=== PATIENT | male | born 1945 | race Two or more races ===

== ENCOUNTER 2017-02-14 14:01 | Emergency (ER) | payer MEDICARE, OTHER ==
[~2017-02-14] VITALS: Ht 172.7 cm; Wt 68.0 kg
--- NOTE | 2017-02-14 14:10 | NUR ---
PT [facility]ENIA FROM SNF FOR HEMATURIA S/P PULLED OUT [facility]. AT FOR EVAL. SAFETY AND COMFORT MEASURES PROVIDED. WILL MONITOR.
--- NOTE | 2017-02-14 14:37 | NUR ---
CALLED [facility] AND SPOKE WITH MELISSA TO REQUEST THAT MED LIST BE FAXED OVER FOR ER DOCTOR
--- NOTE | 2017-02-14 14:50 | NUR ---
FC INITIATED, NOTED WITH BLOOD TINGED URINE OUTPUT. NOTED SWOLLEN TESTICLES. FC IRRIGATED. NO BLOOD CLOT NOTED. FC LEFT IN PLACED PER MD.
--- NOTE | 2017-02-14 14:57 | NUR ---
PAGED DR.RICHARD REID (UROLOGIST) AT [phone]
[2017-02-14 15:15] LABS: BASOPHILS # (AUTO) 0.1 /CMM (0.0-0.2); BASOPHILS % (AUTO) 0.8 % (0.0-2.0); EOSINOPHILS # (AUTO) 0.1 /CMM (0.0-0.7); HEMATOCRIT 31 % (39-51); HEMOGLOBIN 10.2 g/dL (13.5-17.5); LYMPHOCYTES # (AUTO) 1.3 /CMM (0.8-4.8); LYMPHOCYTES % (AUTO) 16.6 % (20.0-44.0); MEAN CORPUSCULAR HEMOGLOBIN 30 PG (26.0-33.0); MEAN CORPUSCULAR HGB CONC 33 g/dl (31.0-36.0); MEAN CORPUSCULAR VOLUME 92 fL (80-96); MONOCYTES # (AUTO) 0.3 /CMM (0.1-1.30); MONOCYTES % (AUTO) 3.7 % (2.0-12.0); NEUTROPHILS # (AUTO) 5.9 /CMM (1.8-8.9); NEUTROPHILS % (AUTO) 77.9 % (43.0-81.0); PLATELET COUNT (AUTO) 233 /CMM (150-450); RDW COEFFICIENT OF VARIATION 15.9 (11.5-15.0); RED BLOOD CELL COUNT(AUTO) 3.39 MIL/uL (4.5-6.0); WHITE BLOOD COUNT (AUTO) 7.7 K/uL (4.3-11.0)
[2017-02-14 15:26] LABS: CALCIUM, SERUM 8.3 mg/dL (8.5-10.1); POTASSIUM 4.8 mmol/L (3.5-5.1)
--- NOTE | 2017-02-14 15:28 | NUR ---
REPAGED DR.RICHARD REID
[2017-02-14 15:30] LABS: INR 1.32 (0.87-1.13); PROTHROMBIN TIME 13.9 SECS (9.5-12.7)
--- NOTE | 2017-02-14 16:15 | NUR ---
DR. MENJIVAR AT AND EVALUATED PT FOR PARAPHIMOSIS. DC ON HOLD.
--- NOTE | 2017-02-14 16:18 | NUR ---
CALLED [facility] FOR TRANSPORT BACK TO SNF, ETA 45 MIN
--- NOTE | 2017-02-14 16:22 | NUR ---
CALLED BACK [facility] TO PUT CALL ON [facility]ISAL
[2017-02-14] MEDS ORDERED: MORPHINE SULFATE INJ 4 MG/ML DISP.SYRIN ONE (16:41)
[2017-02-14] MEDS ORDERED: ONDANSETRON HCL/PF 4 MG/2 ML VIAL ONE (16:41)
[2017-02-14] MEDS ORDERED: MORPHINE SULFATE INJ 2 MG/ML DISP.SYRIN IV ONE (17:00)
[2017-02-14] MEDS ORDERED: ONDANSETRON HCL/PF - ER 4 MG/2 ML VIAL IV ONE (17:00)
--- NOTE | 2017-02-14 17:59 | NUR ---
PAGED UROLOGIST INFLATED BALL MOLDER AT [place], DR. GLADYS SANTIAGO
--- NOTE | 2017-02-14 18:04 | NUR ---
KVNG SANCHEZ AT [facility] PAGED, AUTOMATIC DRILLER AND REAMER
--- NOTE | 2017-02-14 18:07 | NUR ---
CALLED BACK [facility] FOR TRANSPORT, ETA 30 MIN
--- NOTE | 2017-02-14 18:32 | NUR ---
REPORT GIVEN TO [facility] FOR TRANSPORT BACK TO [facility].
[2017-02-14 18:39] VITALS: BP 107/68
== END 2017-02-14 18:40 ==
LOC: ER 14:04
DX: S37.20XA Unspecified injury of bladder, initial encounter (principal); S37.30XA Unspecified injury of urethra, initial encounter; R31.0 Gross hematuria; E87.0 Hyperosmolality and hypernatremia; I10 Essential (primary) hypertension; E11.9 Type 2 diabetes mellitus without complications; I48.91 Unspecified atrial fibrillation; Z87.01 Personal history of pneumonia (recurrent); N47.2 Paraphimosis; X58.XXXA Exposure to other specified factors, initial encounter; Y93.9 Activity, unspecified; Y92.89 Other specified places as the place of occurrence of the external cause; Y99.8 Other external cause status
CPT/HCPCS: 36415; 54450; 80048; 85025; 85730; 96374; 96375; 99284; A4217; A4606; J2270; J2405; Z7610

== ENCOUNTER 2017-03-30 06:34 | Inpatient (IN) | payer MEDICARE, OTHER ==
[~2017-03-30] VITALS: Ht 175.3 cm; Wt 83.9 kg
[2017-03-30] VITALS (41 sets, daily range): BP systolic 81–116; BP diastolic 43–66
[2017-03-30] MEDS ORDERED: MIDAZOLAM HCL 2 MG/2ML VIAL ONE (06:37)
[2017-03-30] MEDS ORDERED: ACETAMINOPHEN 650 MG/SUPP.RECT RC ONE ×2 (06:49→07:00)
[2017-03-30] MEDS ORDERED: PROPOFOL 100 ML IV ONE (06:49)
[2017-03-30] MEDS ORDERED: IV NS 0.9% 2,000 ML ONE (06:50)
[2017-03-30] MEDS ORDERED: PIPERACILLIN /TAZOBACTAM 3.375 G VIAL IV ONE (06:50)
[2017-03-30] MEDS ORDERED: IV NS 0.9% 500 ML IV ONE (06:50)
[2017-03-30] MEDS ORDERED: SECONDARY IV SET 1 EA INFUS.SET MC ONE ×2 (06:50→12:58)
[2017-03-30] MEDS ORDERED: IV SET PRIMARY 1 EA INFUS.SET MC ONE (06:50)
[2017-03-30] MEDS ORDERED: IV SET PRIMARY PUMP SET 1 EA INFUS.SET MC ONE ×4 (06:51→19:38)
[2017-03-30] MEDS ORDERED: VANCOMYCIN 1 GM VIAL ONE (06:51)
[2017-03-30] MEDS ORDERED: MIDAZOLAM HCL 5 MG/5ML VIAL IV ONE (07:00)
[2017-03-30] MEDS ORDERED: IV NS 0.9% 1,000 ML BAG IV ONE (07:00)
[2017-03-30] MEDS ORDERED: VANCOMYCIN 1 GM in IV D5W 250 ML IV ONE ×2 (07:00→10:30)
[2017-03-30] MEDS ORDERED: PIPERACILLIN /TAZOBACTAM 3.375 G in IV D5W 50 ML IV ONE (07:00)
[2017-03-30] MEDS ORDERED: SUCCINYLCHOLINE CHLORIDE 20 MG/ML VIAL IV ONE (07:00)
[2017-03-30] MEDS ORDERED: PROPOFOL 100 ML IV PRN (07:00)
[2017-03-30 07:03] LABS: BASOPHILS % (AUTO) 0.2 % (0.0-2.0); HEMATOCRIT 33 % (39-51); HEMOGLOBIN 10.7 g/dL (13.5-17.5); LYMPHOCYTES # (AUTO) 0.5 /CMM (0.8-4.8); LYMPHOCYTES % (AUTO) 4.9 % (20.0-44.0); MEAN CORPUSCULAR HEMOGLOBIN 30 PG (26.0-33.0); MEAN CORPUSCULAR HGB CONC 32 g/dl (31.0-36.0); MEAN CORPUSCULAR VOLUME 94 fL (80-96); MONOCYTES # (AUTO) 0.6 /CMM (0.1-1.30); MONOCYTES % (AUTO) 5.1 % (2.0-12.0); NEUTROPHILS # (AUTO) 9.9 /CMM (1.8-8.9); NEUTROPHILS % (AUTO) 89.8 % (43.0-81.0); PLATELET COUNT (AUTO) 192 /CMM (150-450); RDW COEFFICIENT OF VARIATION 16.7 (11.5-15.0); RED BLOOD CELL COUNT(AUTO) 3.57 MIL/uL (4.5-6.0)
[2017-03-30 07:18] LABS: APPEARANCE,URINE CLOUDY (CLEAR); BILIRUBIN,URINE NEGATIVE (NEGATIVE); BLOOD, URINE 1+ Ery/uL (NEGATIVE); COLOR,URINE YELLOW (YELLOW); KETONES,URINE NEGATIVE (NEGATIVE); LEUKOCYTE ESTERASE ,URINE 3+ (NEGATIVE); NITRITE, URINE NEGATIVE (NEGATIVE); PROTEIN,URINE 3+ mg/dl (NEGATIVE); UGLUCOSE 2+ mg/dL (NEGATIVE)
[2017-03-30 07:20] LABS: INR 1.11 (0.87-1.13)
[2017-03-30 07:21] LABS: TROPONIN I 0.214 ng/mL (0.00-0.056)
[2017-03-30 07:23] LABS: CLINITEST,URINE 3/4%
[2017-03-30 07:25] LABS: WBC,URINE 51-80 /HPF (0-3)
[2017-03-30 07:26] LABS: BACTERIA,URINE Moderate /HPF (None Seen); RBC,URINE 21-50 /HPF (0-2); SQUAMOUS EPITHELIAL CELL,UR Few /HPF (None Seen); TRIPLE PHOSPHATE CRYSTAL,UR Moderate /HPF (None Seen)
[2017-03-30 07:28] LABS: ALANINE AMINOTRANSFERASE 62 U/L (12-78); ALBUMIN 2.1 g/dL (3.4-5.0); ALKALINE PHOSPHATASE 120 U/L (46-116); ASPARTATE AMINOTRANSFERASE 36 U/L (15-37); BILIRUBIN,DIRECT 0.4 mg/dL (0.0-0.2); BILIRUBIN,TOTAL 0.7 mg/dL (0.2-1.0); CALCIUM, SERUM 8.4 mg/dL (8.5-10.1); CARBON DIOXIDE 33 mmol/L (21-32); CHLORIDE 109 mmol/L (98-107); CREATININE 1.3 mg/dL (0.6-1.3); POTASSIUM 4.1 mmol/L (3.5-5.1); SODIUM SERUM 149 mmol/L (136-145); TOTAL PROTEIN, SERUM 8.2 g/dL (6.4-8.2); UREA NITROGEN, BLOOD 50 mg/dL (7-18)
[2017-03-30 07:34] LABS: GLUCOSE 464 mg/dL (74-106)
[2017-03-30] MEDS ORDERED: MIRT15TA GT (07:37)
[2017-03-30] MEDS ORDERED: TERA1CAP11 GT (07:37)
[2017-03-30] MEDS ORDERED: PANT40TA4 GT (07:37)
[2017-03-30] MEDS ORDERED: LACT-96 GT (07:37)
[2017-03-30] MEDS ORDERED: ASCO500S2 GT (07:37)
[2017-03-30] MEDS ORDERED: SENN-18 GT (07:37)
[2017-03-30] MEDS ORDERED: ACET650S26 GT (07:37)
[2017-03-30] MEDS ORDERED: LEVE100S GT (07:37)
[2017-03-30] MEDS ORDERED: POLY15DR40 EACHEYE (07:37)
[2017-03-30] MEDS ORDERED: TAMS0.4C34 GT (07:37)
[2017-03-30] MEDS ORDERED: METO25TA6 GT (07:37)
[2017-03-30] MEDS ORDERED: MAGN400O6 GT (07:37)
[2017-03-30] MEDS ORDERED: DIGO125T GT (07:37)
[2017-03-30] MEDS ORDERED: POLY17PO4 GT (07:37)
[2017-03-30] MEDS ORDERED: AMIN30LI4 GT (07:37)
[2017-03-30] MEDS ORDERED: ZINC220C8 GT (07:37)
[2017-03-30] MEDS ORDERED: RIVA10TA GT (07:37)
[2017-03-30] MEDS ORDERED: MAGN400T26 GT (07:37)
[2017-03-30] MEDS ORDERED: INSULIN REGULAR, HUMAN 100 UNIT/ML 10 ML VIAL ONE (07:47)
[2017-03-30] MEDS ORDERED: INSULIN REGULAR, HUMAN 100 UNIT/ML 10 ML VIAL IV ONE (08:00)
[2017-03-30 08:48] LABS: ABG BASE EXCESS 0.9 mmol/L; ABG OXYGEN SATURATION 98.1 % (92.0-98.5); ABG PCO2 46.9 mmHg (35.0-45.0); ABG PO2 133.2 mmHg (75.0-100.0); AaDO2 532.9 mmHg; COHb 0.7 % (0.5-1.5); MetHb 0.4 % (0.0-1.5); PEEP,BG 5 cm H2O; SITE, ABG Right Radial; VT, ABG 500 mL
[2017-03-30] MEDS ORDERED: PIPERACILLIN /TAZOBACTAM 3.375 G in IV D5W 50 ML IV SCH (10:00)
[2017-03-30] MEDS ORDERED: ACETAMINOPHEN 650 MG/20.3 ML UDC GT PRN (10:30)
[2017-03-30] MEDS ORDERED: ONDANSETRON HCL/PF 4 MG/2 ML VIAL IVP PRN (10:30)
[2017-03-30] MEDS ORDERED: FIBERSOURCE HN 1,000 ML BOTTLE GT PRN (10:30)
[2017-03-30] MEDS ORDERED: FEE PK DOSING 1 MIN EA MC ONE (11:20)
[2017-03-30] MEDS ORDERED: PANTOPRAZOLE 40 MG TABLET.DR PO SCH (12:00)
[2017-03-30] MEDS ORDERED: DIGOXIN 0.125 MG TABLET GT SCH (13:00)
[2017-03-30] MEDS: PIPERACILLIN /TAZOBACTAM 3.375 G in IV D5W 50 ML IV SCH ×2 (13:04→17:53)
[2017-03-30] MEDS: PANTOPRAZOLE 40 MG VIAL IV SCH (13:04)
[2017-03-30] MEDS: IV NS 0.9% 1,000 ML IV PRN (13:04)
[2017-03-30] MEDS: PROPOFOL 100 ML IV PRN ×2 (13:05→17:52)
[2017-03-30] MEDS ORDERED: TERAZOSIN HCL 1 MG CAPSULE GT SCH (17:00)
[2017-03-30] MEDS ORDERED: RIVAROXABAN 10 MG TABLET GT SCH (17:00)
[2017-03-30] MEDS: LEVETIRACETAM SOL (5 ML) 100 MG/ML UDC GT SCH (17:52)
[2017-03-30] MEDS: LACTOBACILLUS RHAMNOSUS GG 1 EACH CAP.SPRINK GT SCH (17:52)
[2017-03-30] MEDS: POLYVINYL ALCOHOL 15 ML BOTTLE OP SCH (17:53)
[2017-03-30] MEDS ORDERED: NOREPINEPHRINE 16 MG in IV D5W 500 ML IV PRN (18:00)
[2017-03-30] MEDS: VANCOMYCIN 0.75 GM in IV D5W 250 ML IV SCH (20:10)
[2017-03-30] MEDS: IPRATROPIUM NEB FS 0.5 MG/2.5 ML AMPUL.NEB NEB SCH ×2 (20:12→23:16)
[2017-03-31] VITALS (62 sets, daily range): BP systolic 77–125; BP diastolic 43–68
[2017-03-31] MEDS: PIPERACILLIN /TAZOBACTAM 3.375 G in IV D5W 50 ML IV SCH ×5 (00:12→23:28)
[2017-03-31] MEDS: IV NS 0.9% 1,000 ML IV PRN (03:08)
[2017-03-31] MEDS: IPRATROPIUM NEB FS 0.5 MG/2.5 ML AMPUL.NEB NEB SCH ×6 (04:00→23:09)
[2017-03-31 04:54] LABS: BASOPHILS % (AUTO) 0.1 % (0.0-2.0); EOSINOPHILS % (AUTO) 0.2 % (0.0-6.0); HEMATOCRIT 29 % (39-51); HEMOGLOBIN 9.3 g/dL (13.5-17.5); LYMPHOCYTES # (AUTO) 0.8 /CMM (0.8-4.8); LYMPHOCYTES % (AUTO) 7.7 % (20.0-44.0); MEAN CORPUSCULAR HEMOGLOBIN 30 PG (26.0-33.0); MEAN CORPUSCULAR HGB CONC 32 g/dl (31.0-36.0); MEAN CORPUSCULAR VOLUME 94 fL (80-96); MONOCYTES # (AUTO) 0.4 /CMM (0.1-1.30); NEUTROPHILS # (AUTO) 9.2 /CMM (1.8-8.9); PLATELET COUNT (AUTO) 131 /CMM (150-450); RDW COEFFICIENT OF VARIATION 16.4 (11.5-15.0); RED BLOOD CELL COUNT(AUTO) 3.07 MIL/uL (4.5-6.0); WHITE BLOOD COUNT (AUTO) 10.5 K/uL (4.3-11.0)
[2017-03-31 05:24] LABS: ALANINE AMINOTRANSFERASE 43 U/L (12-78); ALBUMIN 1.7 g/dL (3.4-5.0); ALKALINE PHOSPHATASE 97 U/L (46-116); ASPARTATE AMINOTRANSFERASE 23 U/L (15-37); BILIRUBIN,TOTAL 0.8 mg/dL (0.2-1.0); CALCIUM, SERUM 7.8 mg/dL (8.5-10.1); CARBON DIOXIDE 32 mmol/L (21-32); CHLORIDE 113 mmol/L (98-107); CREATININE 1.3 mg/dL (0.6-1.3); POTASSIUM 3.8 mmol/L (3.5-5.1); SODIUM SERUM 151 mmol/L (136-145); TOTAL PROTEIN, SERUM 6.8 g/dL (6.4-8.2); UREA NITROGEN, BLOOD 56 mg/dL (7-18)
[2017-03-31 05:26] LABS: TROPONIN I 0.165 ng/mL (0.00-0.056)
[2017-03-31 05:39] LABS: GLUCOSE 379 mg/dL (74-106)
[2017-03-31 05:57] LABS: LYMPHOCYTES % (MANUAL) 8 % (16-48); MONOCYTES % (MANUAL) 4 % (0-11.0); NEUTROPHILS % (MANUAL) 88 (42-76)
[2017-03-31] MEDS ORDERED: DEXTROSE 50%-WATER 50 ML DISP.SYRIN IV PRN ×2 (07:00→13:30)
[2017-03-31 08:03] LABS: THYROID STIMULATING HORMONE 2.136 uIU/mL (0.358-3.74)
[2017-03-31] MEDS: INSULIN REGULAR, HUMAN 100 UNIT/ML 3 ML VIAL SQ PRN ×4 (08:07→23:26)
[2017-03-31] MEDS ORDERED: SECONDARY IV SET 1 EA INFUS.SET MC ONE (08:10)
[2017-03-31] MEDS: LACTOBACILLUS RHAMNOSUS GG 1 EACH CAP.SPRINK GT SCH ×2 (08:17→17:13)
[2017-03-31] MEDS: ASCORBIC ACID 500 MG TABLET GT SCH (08:17)
[2017-03-31] MEDS: POLYVINYL ALCOHOL 15 ML BOTTLE OP SCH ×2 (08:17→17:17)
[2017-03-31] MEDS: TAMSULOSIN 0.4 MG CAP.SR.24H GT SCH (08:17)
[2017-03-31] MEDS: LEVETIRACETAM SOL (5 ML) 100 MG/ML UDC GT SCH ×2 (08:17→17:13)
[2017-03-31] MEDS: IV 1/2NS 1000 ML 1,000 ML IV PRN ×2 (08:31→19:53)
[2017-03-31] MEDS: VANCOMYCIN 0.75 GM in IV D5W 250 ML IV SCH ×2 (08:39→20:53)
[2017-03-31 08:43] LABS: ABG BASE EXCESS 2.8 mmol/L; ABG OXYGEN SATURATION 98.2 % (92.0-98.5); ABG PCO2 40.1 mmHg (35.0-45.0); ABG PH 7.446 (7.350-7.450); AaDO2 103.1 mmHg; COHb 0.3 % (0.5-1.5); O2Hb 96.9 % (94.0-97.0); SITE, ABG Right Radial; VENT MODE, BG AC 16 500 40% +5
[2017-03-31] MEDS ORDERED: HYDROGEL DRESSING 90 GM TUBE TP PRN (09:00)
[2017-03-31] MEDS ORDERED: Z GUARD REMEDY 2 OZ OINT TP PRN (09:00)
[2017-03-31 09:28] LABS: PHOSPHORUS 3.1 mg/dL (2.5-4.9)
[2017-03-31] MEDS: Z GUARD REMEDY 2 OZ OINT TP SCH (10:20)
[2017-03-31] MEDS: HYDROGEL DRESSING 90 GM TUBE TP SCH (10:20)
[2017-03-31] MEDS: PANTOPRAZOLE 40 MG VIAL IV SCH (11:39)
[2017-03-31] MEDS ORDERED: BLOOD SUGAR DIAGNOSTIC 1 EACH STRIP IN SCH (12:00)
[2017-03-31] MEDS: MORPHINE SULFATE INJ 2 MG/ML DISP.SYRIN IV PRN (15:35)
[2017-03-31] MEDS: FERROUS SULFATE (325 MG) 325 MG/TAB TABLET PO SCH (17:13)
[2017-03-31] MEDS: BLOOD SUGAR DIAGNOSTIC 1 EACH STRIP IN SCH ×2 (17:14→23:28)
[2017-03-31] MEDS: ENOXAPARIN SODIUM 80 MG/0.8 ML DISP.SYRIN SQ SCH (17:56)
[2017-03-31] MEDS: GLYTROL 1,000 ML BAG GT PRN (22:44)
[2017-04-01] VITALS (56 sets, daily range): BP systolic 85–111; BP diastolic 39–62
[2017-04-01] MEDS: IPRATROPIUM NEB FS 0.5 MG/2.5 ML AMPUL.NEB NEB SCH ×6 (03:33→23:49)
[2017-04-01] MEDS: PIPERACILLIN /TAZOBACTAM 3.375 G in IV D5W 50 ML IV SCH ×2 (05:48→12:44)
[2017-04-01] MEDS: INSULIN REGULAR, HUMAN 100 UNIT/ML 3 ML VIAL SQ PRN ×4 (06:08→23:27)
[2017-04-01] MEDS: BLOOD SUGAR DIAGNOSTIC 1 EACH STRIP IN SCH ×4 (06:11→23:27)
[2017-04-01] MEDS: IV 1/2NS 1000 ML 1,000 ML IV PRN ×2 (06:17→16:45)
[2017-04-01 06:31] LABS: BASOPHILS % (AUTO) 0.1 % (0.0-2.0); HEMATOCRIT 28 % (39-51); HEMOGLOBIN 8.9 g/dL (13.5-17.5); LYMPHOCYTES # (AUTO) 0.9 /CMM (0.8-4.8); LYMPHOCYTES % (AUTO) 8.5 % (20.0-44.0); MEAN CORPUSCULAR HEMOGLOBIN 30 PG (26.0-33.0); MEAN CORPUSCULAR HGB CONC 32 g/dl (31.0-36.0); MEAN CORPUSCULAR VOLUME 92 fL (80-96); MONOCYTES # (AUTO) 0.3 /CMM (0.1-1.30); NEUTROPHILS # (AUTO) 9.1 /CMM (1.8-8.9); NEUTROPHILS % (AUTO) 88.4 % (43.0-81.0); PLATELET COUNT (AUTO) 143 /CMM (150-450); RDW COEFFICIENT OF VARIATION 16.5 (11.5-15.0); WHITE BLOOD COUNT (AUTO) 10.3 K/uL (4.3-11.0)
[2017-04-01 06:50] LABS: ALANINE AMINOTRANSFERASE 58 U/L (12-78); ALKALINE PHOSPHATASE 96 U/L (46-116); ASPARTATE AMINOTRANSFERASE 51 U/L (15-37); CALCIUM, SERUM 7.7 mg/dL (8.5-10.1); CARBON DIOXIDE 32 mmol/L (21-32); CHLORIDE 113 mmol/L (98-107); CREATININE 1.1 mg/dL (0.6-1.3); GLUCOSE 161 mg/dL (74-106); MAGNESIUM 2.1 mg/dL (1.8-2.4); PHOSPHORUS 3.2 mg/dL (2.5-4.9); POTASSIUM 3.4 mmol/L (3.5-5.1); SODIUM SERUM 149 mmol/L (136-145); TOTAL PROTEIN, SERUM 6.2 g/dL (6.4-8.2); UREA NITROGEN, BLOOD 52 mg/dL (7-18)
[2017-04-01 07:02] LABS: TROPONIN I 0.036 ng/mL (0.00-0.056)
[2017-04-01 07:27] LABS: ALBUMIN 1.4 g/dL (3.4-5.0)
[2017-04-01] MEDS: LACTOBACILLUS RHAMNOSUS GG 1 EACH CAP.SPRINK GT SCH ×2 (08:22→16:45)
[2017-04-01] MEDS: LEVETIRACETAM SOL (5 ML) 100 MG/ML UDC GT SCH ×2 (08:22→16:45)
[2017-04-01] MEDS: FERROUS SULFATE (325 MG) 325 MG/TAB TABLET PO SCH ×2 (08:22→16:45)
[2017-04-01] MEDS: TAMSULOSIN 0.4 MG CAP.SR.24H GT SCH (08:22)
[2017-04-01] MEDS: ASCORBIC ACID 500 MG TABLET GT SCH (08:22)
[2017-04-01] MEDS: ENOXAPARIN SODIUM 80 MG/0.8 ML DISP.SYRIN SQ SCH ×2 (08:23→20:19)
[2017-04-01] MEDS: HYDROGEL DRESSING 90 GM TUBE TP SCH (08:23)
[2017-04-01] MEDS: POLYVINYL ALCOHOL 15 ML BOTTLE OP SCH ×2 (08:24→16:46)
[2017-04-01] MEDS: Z GUARD REMEDY 2 OZ OINT TP SCH (08:24)
[2017-04-01] MEDS: VANCOMYCIN 0.75 GM in IV D5W 250 ML IV SCH (08:24)
[2017-04-01] MEDS ORDERED: IV SET PRIMARY PUMP SET 1 EA INFUS.SET MC ONE ×2 (08:48→10:10)
[2017-04-01] MEDS: ALBUMIN 25% 25 GM in PREMIX 1 EA IV SCH ×3 (08:55→19:36)
[2017-04-01] MEDS: POTASSIUM CL. PREMIX PERIPHER. 50 ML IV SCH ×2 (10:15→11:04)
[2017-04-01 11:50] LABS: ABG BASE EXCESS 2.8 mmol/L; ABG OXYGEN SATURATION 98.8 % (92.0-98.5); ABG PCO2 38.2 mmHg (35.0-45.0); ABG PH 7.462 (7.350-7.450); ABG PO2 173.3 mmHg (75.0-100.0); COHb 0.8 % (0.5-1.5); MetHb 0.8 % (0.0-1.5); O2Hb 97.2 % (94.0-97.0); PEEP,BG 5 cm H2O; SITE, ABG Left Radial
[2017-04-01] MEDS: PANTOPRAZOLE 40 MG VIAL IV SCH (11:55)
[2017-04-01] MEDS: CEFAZOLIN 1 GM in IV D5W 50 ML IV SCH ×2 (15:55→20:18)
[2017-04-01] MEDS: MORPHINE SULFATE INJ 2 MG/ML DISP.SYRIN IV PRN (17:44)
[2017-04-01] MEDS: GLYTROL 1,000 ML BAG GT PRN (23:26)
[2017-04-02] VITALS (48 sets, daily range): BP systolic 82–133; BP diastolic 40–60
[2017-04-02] MEDS: IV 1/2NS 1000 ML 1,000 ML IV PRN ×3 (01:12→17:38)
[2017-04-02] MEDS: ALBUMIN 25% 25 GM in PREMIX 1 EA IV SCH (02:05)
[2017-04-02] MEDS: MORPHINE SULFATE INJ 2 MG/ML DISP.SYRIN IV PRN (02:21)
[2017-04-02] MEDS: IPRATROPIUM NEB FS 0.5 MG/2.5 ML AMPUL.NEB NEB SCH ×6 (03:40→22:56)
[2017-04-02] MEDS: CEFAZOLIN 1 GM in IV D5W 50 ML IV SCH ×3 (04:29→20:17)
[2017-04-02] MEDS: INSULIN REGULAR, HUMAN 100 UNIT/ML 3 ML VIAL SQ PRN ×4 (05:23→23:37)
[2017-04-02] MEDS: BLOOD SUGAR DIAGNOSTIC 1 EACH STRIP IN SCH ×4 (05:23→23:34)
[2017-04-02 06:21] LABS: BASOPHILS % (AUTO) 0.3 % (0.0-2.0); EOSINOPHILS # (AUTO) 0.2 /CMM (0.0-0.7); EOSINOPHILS % (AUTO) 2.1 % (0.0-6.0); HEMATOCRIT 26 % (39-51); HEMOGLOBIN 8.6 g/dL (13.5-17.5); LYMPHOCYTES % (AUTO) 12.4 % (20.0-44.0); MEAN CORPUSCULAR HEMOGLOBIN 30 PG (26.0-33.0); MEAN CORPUSCULAR HGB CONC 33 g/dl (31.0-36.0); MEAN CORPUSCULAR VOLUME 92 fL (80-96); MONOCYTES % (AUTO) 0.6 % (2.0-12.0); NEUTROPHILS # (AUTO) 6.8 /CMM (1.8-8.9); NEUTROPHILS % (AUTO) 84.6 % (43.0-81.0); PLATELET COUNT (AUTO) 132 /CMM (150-450); RDW COEFFICIENT OF VARIATION 16.2 (11.5-15.0); RED BLOOD CELL COUNT(AUTO) 2.88 MIL/uL (4.5-6.0)
[2017-04-02 06:47] LABS: ALANINE AMINOTRANSFERASE 36 U/L (12-78); ALBUMIN 2.5 g/dL (3.4-5.0); ALKALINE PHOSPHATASE 72 U/L (46-116); ASPARTATE AMINOTRANSFERASE 24 U/L (15-37); BILIRUBIN,TOTAL 0.6 mg/dL (0.2-1.0); CALCIUM, SERUM 8.1 mg/dL (8.5-10.1); CARBON DIOXIDE 29 mmol/L (21-32); CHLORIDE 110 mmol/L (98-107); CREATININE 1.2 mg/dL (0.6-1.3); GLUCOSE 152 mg/dL (74-106); POTASSIUM 3.4 mmol/L (3.5-5.1); SODIUM SERUM 145 mmol/L (136-145); TOTAL PROTEIN, SERUM 6.2 g/dL (6.4-8.2); UREA NITROGEN, BLOOD 52 mg/dL (7-18)
[2017-04-02] MEDS: FERROUS SULFATE (325 MG) 325 MG/TAB TABLET PO SCH ×2 (08:17→17:49)
[2017-04-02] MEDS: LACTOBACILLUS RHAMNOSUS GG 1 EACH CAP.SPRINK GT SCH ×2 (08:17→17:49)
[2017-04-02] MEDS: LEVETIRACETAM SOL (5 ML) 100 MG/ML UDC GT SCH ×2 (08:17→17:48)
[2017-04-02] MEDS: ASCORBIC ACID 500 MG TABLET GT SCH (08:17)
[2017-04-02] MEDS: TAMSULOSIN 0.4 MG CAP.SR.24H GT SCH (08:17)
[2017-04-02] MEDS: Z GUARD REMEDY 2 OZ OINT TP SCH (08:18)
[2017-04-02] MEDS: ENOXAPARIN SODIUM 80 MG/0.8 ML DISP.SYRIN SQ SCH ×2 (08:18→20:20)
[2017-04-02] MEDS: HYDROGEL DRESSING 90 GM TUBE TP SCH (08:18)
[2017-04-02] MEDS: POLYVINYL ALCOHOL 15 ML BOTTLE OP SCH ×2 (08:24→17:49)
[2017-04-02] MEDS ORDERED: POTASSIUM CHLORIDE 20 MEQ POWDER PACKET GT SCH (10:30)
[2017-04-02] MEDS: PANTOPRAZOLE 40 MG VIAL IV SCH (11:03)
[2017-04-02 13:07] LABS: IMMUNOGLOBULIN A, SERUM 332 mg/dL (61-437); IMMUNOGLOBULIN G, SERUM 1512 mg/dL (700-1600); IMMUNOGLOBULIN M, SERUM 75 mg/dL (15-143)
[2017-04-02 13:58] LABS: ABG BASE EXCESS -0.8 mmol/L; ABG OXYGEN SATURATION 98.6 % (92.0-98.5); ABG PH 7.455 (7.350-7.450); ABG PO2 170.4 mmHg (75.0-100.0); AaDO2 76.9 mmHg; COHb 0.3 % (0.5-1.5); MetHb 0.3 % (0.0-1.5); PEEP,BG 5 cm H2O; SITE, ABG Left Radial; VENT MODE, BG CPAP PS 12 +5; VT, ABG 500 mL
[2017-04-02] MEDS: GLYTROL 1,000 ML BAG GT PRN (17:52)
[2017-04-03] VITALS (19 sets, daily range): BP systolic 88–122; BP diastolic 48–69
[2017-04-03] MEDS: IV 1/2NS 1000 ML 1,000 ML IV PRN (01:56)
[2017-04-03] MEDS: IPRATROPIUM NEB FS 0.5 MG/2.5 ML AMPUL.NEB NEB SCH ×5 (03:08→21:03)
[2017-04-03] MEDS: CEFAZOLIN 1 GM in IV D5W 50 ML IV SCH ×3 (04:28→21:27)
[2017-04-03] MEDS: BLOOD SUGAR DIAGNOSTIC 1 EACH STRIP IN SCH ×3 (05:33→17:33)
[2017-04-03 06:33] LABS: BASOPHILS % (AUTO) 0.2 % (0.0-2.0); EOSINOPHILS # (AUTO) 0.2 /CMM (0.0-0.7); EOSINOPHILS % (AUTO) 3.2 % (0.0-6.0); HEMATOCRIT 25 % (39-51); HEMOGLOBIN 8.2 g/dL (13.5-17.5); LYMPHOCYTES % (AUTO) 15.1 % (20.0-44.0); MEAN CORPUSCULAR HEMOGLOBIN 30 PG (26.0-33.0); MEAN CORPUSCULAR HGB CONC 33 g/dl (31.0-36.0); MEAN CORPUSCULAR VOLUME 91 fL (80-96); MONOCYTES # (AUTO) 0.2 /CMM (0.1-1.30); MONOCYTES % (AUTO) 3.4 % (2.0-12.0); NEUTROPHILS # (AUTO) 5.4 /CMM (1.8-8.9); NEUTROPHILS % (AUTO) 78.1 % (43.0-81.0); PLATELET COUNT (AUTO) 142 /CMM (150-450); RDW COEFFICIENT OF VARIATION 16.3 (11.5-15.0); RED BLOOD CELL COUNT(AUTO) 2.78 MIL/uL (4.5-6.0); WHITE BLOOD COUNT (AUTO) 6.9 K/uL (4.3-11.0)
[2017-04-03 06:49] LABS: ALANINE AMINOTRANSFERASE 30 U/L (12-78); ALKALINE PHOSPHATASE 71 U/L (46-116); ASPARTATE AMINOTRANSFERASE 27 U/L (15-37); BILIRUBIN,TOTAL 0.4 mg/dL (0.2-1.0); CALCIUM, SERUM 6.8 mg/dL (8.5-10.1); CARBON DIOXIDE 27 mmol/L (21-32); CHLORIDE 103 mmol/L (98-107); CREATININE 0.9 mg/dL (0.6-1.3); GLUCOSE 82 mg/dL (74-106); MAGNESIUM 1.6 mg/dL (1.8-2.4); PHOSPHORUS 2.6 mg/dL (2.5-4.9); POTASSIUM 2.9 mmol/L (3.5-5.1); SODIUM SERUM 136 mmol/L (136-145); TOTAL PROTEIN, SERUM 5.6 g/dL (6.4-8.2); UREA NITROGEN, BLOOD 35 mg/dL (7-18)
[2017-04-03] MEDS ORDERED: POTASSIUM CHLORIDE 20 MEQ POWDER PACKET GT ONE ×4 (09:00→16:00)
[2017-04-03] MEDS: HYDROGEL DRESSING 90 GM TUBE TP SCH (09:07)
[2017-04-03] MEDS: Z GUARD REMEDY 2 OZ OINT TP SCH (09:07)
[2017-04-03] MEDS: POLYVINYL ALCOHOL 15 ML BOTTLE OP SCH ×2 (09:07→16:20)
[2017-04-03] MEDS ORDERED: SECONDARY IV SET 1 EA INFUS.SET MC ONE ×2 (09:07→21:20)
[2017-04-03] MEDS: TAMSULOSIN 0.4 MG CAP.SR.24H GT SCH (09:13)
[2017-04-03] MEDS: LEVETIRACETAM SOL (5 ML) 100 MG/ML UDC GT SCH ×2 (09:13→16:16)
[2017-04-03] MEDS: Magnesium 1GM/D5W 100ML PREMIX 100 ML IV SCH ×2 (09:13→10:11)
[2017-04-03] MEDS: LACTOBACILLUS RHAMNOSUS GG 1 EACH CAP.SPRINK GT SCH ×2 (09:13→16:16)
[2017-04-03] MEDS: FERROUS SULFATE (325 MG) 325 MG/TAB TABLET PO SCH ×2 (09:13→16:16)
[2017-04-03] MEDS: ASCORBIC ACID 500 MG TABLET GT SCH (09:13)
[2017-04-03] MEDS: ENOXAPARIN SODIUM 80 MG/0.8 ML DISP.SYRIN SQ SCH (09:16)
[2017-04-03] MEDS: GLYTROL 1,000 ML BAG GT PRN (09:21)
[2017-04-03 10:20] LABS: ABG BASE EXCESS -0.3 mmol/L; ABG OXYGEN SATURATION 98.1 % (92.0-98.5); ABG PCO2 22.9 mmHg (35.0-45.0); ABG PH 7.573 (7.350-7.450); ABG PO2 125.1 mmHg (75.0-100.0); AaDO2 47.5 mmHg; COHb 0.3 % (0.5-1.5); MetHb 0.4 % (0.0-1.5); O2Hb 97.4 % (94.0-97.0); SITE, ABG Left Radial; VENT MODE, BG N/C
[2017-04-03 10:33] LABS: *SPE A/G RATIO 0.5 (0.7-1.7); *SPE ALPHA-1-GLOBULIN 0.3 g/dL (0.0-0.4); *SPE ALPHA-2-GLOBULIN 0.9 g/dL (0.4-1.0); *SPE BETA GLOBULIN 0.8 g/dL (0.7-1.3); *SPE GLOBULIN, TOTAL 3.8 g/dL (2.2-3.9); *SPE M-SPIKE Not Observed g/dL (Not Observed); *SPE PROTEIN TOTAL 5.8 g/dL (6.0-8.5); *SPEGAMMA GLOBULIN 1.7 g/dL (0.4-1.8)
[2017-04-03] MEDS ORDERED: Magnesium 1GM/D5W 100ML PREMIX 100 ML IV SCH (11:08)
[2017-04-03] MEDS: INSULIN REGULAR, HUMAN 100 UNIT/ML 3 ML VIAL SQ PRN ×2 (11:18→17:36)
[2017-04-03] MEDS ORDERED: POTASSIUM CHLORIDE 20 MEQ POWDER PACKET GT SCH (11:30)
[2017-04-03] MEDS: PANTOPRAZOLE 40 MG VIAL IV SCH (12:39)
[2017-04-03] MEDS: RIVAROXABAN 10 MG TABLET GT SCH (16:17)
[2017-04-03] MEDS ORDERED: IV SET PRIMARY PUMP SET 1 EA INFUS.SET MC ONE (21:20)
[2017-04-03] MEDS ORDERED: IV NS 0.9% 250 ML IV ONE (21:20)
[2017-04-04] VITALS (7 sets, daily range): BP systolic 85–145; BP diastolic 42–63
[2017-04-04] MEDS: BLOOD SUGAR DIAGNOSTIC 1 EACH STRIP IN SCH ×4 (00:59→17:47)
[2017-04-04] MEDS: IPRATROPIUM NEB FS 0.5 MG/2.5 ML AMPUL.NEB NEB SCH ×7 (03:15→23:30)
[2017-04-04] MEDS: CEFAZOLIN 1 GM in IV D5W 50 ML IV SCH ×3 (05:53→21:26)
[2017-04-04] MEDS: GLYTROL 1,000 ML BAG GT PRN (05:53)
[2017-04-04 06:53] LABS: BASOPHILS % (AUTO) 0.3 % (0.0-2.0); EOSINOPHILS # (AUTO) 0.1 /CMM (0.0-0.7); EOSINOPHILS % (AUTO) 1.7 % (0.0-6.0); HEMATOCRIT 28 % (39-51); HEMOGLOBIN 9.1 g/dL (13.5-17.5); LYMPHOCYTES # (AUTO) 1.1 /CMM (0.8-4.8); LYMPHOCYTES % (AUTO) 13.3 % (20.0-44.0); MEAN CORPUSCULAR HEMOGLOBIN 29 PG (26.0-33.0); MEAN CORPUSCULAR HGB CONC 32 g/dl (31.0-36.0); MEAN CORPUSCULAR VOLUME 91 fL (80-96); MONOCYTES # (AUTO) 0.3 /CMM (0.1-1.30); MONOCYTES % (AUTO) 3.5 % (2.0-12.0); NEUTROPHILS # (AUTO) 6.5 /CMM (1.8-8.9); NEUTROPHILS % (AUTO) 81.2 % (43.0-81.0); PLATELET COUNT (AUTO) 175 /CMM (150-450); RDW COEFFICIENT OF VARIATION 16.1 (11.5-15.0); RED BLOOD CELL COUNT(AUTO) 3.09 MIL/uL (4.5-6.0); WHITE BLOOD COUNT (AUTO) 8.1 K/uL (4.3-11.0)
[2017-04-04 07:02] LABS: CARBON DIOXIDE 29 mmol/L (21-32); CHLORIDE 111 mmol/L (98-107); CREATININE 0.9 mg/dL (0.6-1.3); GLUCOSE 117 mg/dL (74-106); POTASSIUM 4.4 mmol/L (3.5-5.1); SODIUM SERUM 145 mmol/L (136-145); UREA NITROGEN, BLOOD 32 mg/dL (7-18)
[2017-04-04] MEDS: ASCORBIC ACID 500 MG TABLET GT SCH (09:00)
[2017-04-04] MEDS: Z GUARD REMEDY 2 OZ OINT TP SCH (09:00)
[2017-04-04] MEDS: LEVETIRACETAM SOL (5 ML) 100 MG/ML UDC GT SCH ×2 (09:00→16:24)
[2017-04-04] MEDS: LACTOBACILLUS RHAMNOSUS GG 1 EACH CAP.SPRINK GT SCH ×2 (09:00→16:24)
[2017-04-04] MEDS: TAMSULOSIN 0.4 MG CAP.SR.24H GT SCH (09:00)
[2017-04-04] MEDS: POLYVINYL ALCOHOL 15 ML BOTTLE OP SCH ×2 (09:00→16:26)
[2017-04-04] MEDS: HYDROGEL DRESSING 90 GM TUBE TP SCH (09:00)
[2017-04-04] MEDS: PANTOPRAZOLE 40 MG VIAL IV SCH (12:30)
[2017-04-04] MEDS: INSULIN REGULAR, HUMAN 100 UNIT/ML 3 ML VIAL SQ PRN ×2 (12:32→17:50)
[2017-04-04] MEDS ORDERED: SECONDARY IV SET 1 EA INFUS.SET MC ONE (12:34)
[2017-04-04] MEDS: RIVAROXABAN 10 MG TABLET GT SCH (16:25)
[2017-04-04] MEDS: SOD FERRIC GLUC 125 MG in IV NS 0.9% 100 ML IV SCH (16:57)
[2017-04-05] VITALS: BP 125/47
[2017-04-05] MEDS: BLOOD SUGAR DIAGNOSTIC 1 EACH STRIP IN SCH ×3 (00:20→12:11)
[2017-04-05] MEDS: IPRATROPIUM NEB FS 0.5 MG/2.5 ML AMPUL.NEB NEB SCH ×4 (03:30→15:36)
[2017-04-05 04:00] VITALS: BP_SYST 128; BP_DIAS 50; BP_DIAS 56
[2017-04-05] MEDS: CEFAZOLIN 1 GM in IV D5W 50 ML IV SCH ×2 (05:16→12:58)
[2017-04-05] MEDS: GLYTROL 1,000 ML BAG GT PRN (05:51)
[2017-04-05 07:27] LABS: CALCIUM, SERUM 8.2 mg/dL (8.5-10.1); CARBON DIOXIDE 28 mmol/L (21-32); CHLORIDE 112 mmol/L (98-107); CREATININE 0.8 mg/dL (0.6-1.3); GLUCOSE 116 mg/dL (74-106); MAGNESIUM 1.9 mg/dL (1.8-2.4); PHOSPHORUS 2.8 mg/dL (2.5-4.9); POTASSIUM 3.8 mmol/L (3.5-5.1); SODIUM SERUM 148 mmol/L (136-145); UREA NITROGEN, BLOOD 24 mg/dL (7-18)
[2017-04-05 08:00] VITALS: BP 103/50
[2017-04-05] MEDS: ASCORBIC ACID 500 MG TABLET GT SCH (08:54)
[2017-04-05] MEDS: TAMSULOSIN 0.4 MG CAP.SR.24H GT SCH (08:54)
[2017-04-05] MEDS: LEVETIRACETAM SOL (5 ML) 100 MG/ML UDC GT SCH (08:54)
[2017-04-05] MEDS: LACTOBACILLUS RHAMNOSUS GG 1 EACH CAP.SPRINK GT SCH (08:54)
[2017-04-05] MEDS: HYDROGEL DRESSING 90 GM TUBE TP SCH (08:55)
[2017-04-05] MEDS: POLYVINYL ALCOHOL 15 ML BOTTLE OP SCH (08:55)
[2017-04-05] MEDS: Z GUARD REMEDY 2 OZ OINT TP SCH (08:55)
[2017-04-05 09:17] LABS: BASOPHILS % (AUTO) 0.3 % (0.0-2.0); EOSINOPHILS # (AUTO) 0.1 /CMM (0.0-0.7); EOSINOPHILS % (AUTO) 1.1 % (0.0-6.0); HEMATOCRIT 28 % (39-51); HEMOGLOBIN 9.1 g/dL (13.5-17.5); LYMPHOCYTES # (AUTO) 0.9 /CMM (0.8-4.8); LYMPHOCYTES % (AUTO) 10.4 % (20.0-44.0); MEAN CORPUSCULAR HEMOGLOBIN 30 PG (26.0-33.0); MEAN CORPUSCULAR HGB CONC 33 g/dl (31.0-36.0); MEAN CORPUSCULAR VOLUME 90 fL (80-96); MONOCYTES # (AUTO) 0.3 /CMM (0.1-1.30); MONOCYTES % (AUTO) 3.3 % (2.0-12.0); NEUTROPHILS # (AUTO) 7.3 /CMM (1.8-8.9); NEUTROPHILS % (AUTO) 84.9 % (43.0-81.0); PLATELET COUNT (AUTO) 190 /CMM (150-450); RDW COEFFICIENT OF VARIATION 16.5 (11.5-15.0); RED BLOOD CELL COUNT(AUTO) 3.09 MIL/uL (4.5-6.0); WHITE BLOOD COUNT (AUTO) 8.5 K/uL (4.3-11.0)
[2017-04-05 09:23] LABS: ABG BASE EXCESS 2.4 mmol/L; ABG OXYGEN SATURATION 94.1 % (92.0-98.5); ABG PCO2 32.8 mmHg (35.0-45.0); ABG PH 7.505 (7.350-7.450); ABG PO2 73.2 mmHg (75.0-100.0); AaDO2 37.3 mmHg; MetHb 0.7 % (0.0-1.5); O2Hb 92.5 % (94.0-97.0); SITE, ABG Right Radial; VENT MODE, BG room air
[2017-04-05] MEDS ORDERED: IV D5W 1,000 ML IV PRN (11:06)
[2017-04-05] MEDS ORDERED: SULF1TAB48 PO (11:39)
[2017-04-05] MEDS: PANTOPRAZOLE 40 MG VIAL IV SCH (12:58)
[2017-04-05] MEDS: INSULIN REGULAR, HUMAN 100 UNIT/ML 3 ML VIAL SQ PRN (13:00)
[2017-04-05] MEDS ORDERED: IV SET PRIMARY PUMP SET 1 EA INFUS.SET MC ONE (13:10)
[2017-04-05 16:00] VITALS: BP 106/68
[2017-04-05] MEDS: SOD FERRIC GLUC 125 MG in IV NS 0.9% 100 ML IV SCH (16:33)
== END 2017-04-05 16:55 | DRG 871 ==
LOC: ER 06:35 → ICU 10:21 → ICUOV 03-31 14:39 → TELE-TD 04-03 09:51 → TELE1 04-03 12:19 → TELE-TD 04-03 12:21 → TELE1 04-03 12:39 → MEDSG1 04-05 10:15
PROC: 5A1945Z Respiratory Ventilation, 24-96 Consecutive Hours (ICD-10-PCS; principal; 2017-03-30)
PROC: 0BH17EZ Insertion of Endotracheal Airway into Trachea, Via Natural or Artificial Opening (ICD-10-PCS; 2017-03-30)
PROC: 05H633Z Insertion of Infusion Device into Left Subclavian Vein, Percutaneous Approach (ICD-10-PCS; 2017-03-30)
PROC: B547ZZA Ultrasonography of Left Subclavian Vein, Guidance (ICD-10-PCS; 2017-03-30)
DX: A41.9 Sepsis, unspecified organism (principal); J69.0 Pneumonitis due to inhalation of food and vomit; I21.4 Non-ST elevation (NSTEMI) myocardial infarction; N17.0 Acute kidney failure with tubular necrosis; R53.2 Functional quadriplegia; R65.21 Severe sepsis with septic shock; G93.40 Encephalopathy, unspecified; J96.21 Acute and chronic respiratory failure with hypoxia; L89.313 Pressure ulcer of right buttock, stage 3; E43 Unspecified severe protein-calorie malnutrition; D68.59 Other primary thrombophilia; E87.0 Hyperosmolality and hypernatremia; N39.0 Urinary tract infection, site not specified; G91.9 Hydrocephalus, unspecified; J90 Pleural effusion, not elsewhere classified; E87.4 Mixed disorder of acid-base balance; I48.91 Unspecified atrial fibrillation; G40.909 Epilepsy, unspecified, not intractable, without status epilepticus; N40.0 Benign prostatic hyperplasia without lower urinary tract symptoms; R13.10 Dysphagia, unspecified; Z93.1 Gastrostomy status; E11.22 Type 2 diabetes mellitus with diabetic chronic kidney disease; I48.0 Paroxysmal atrial fibrillation; Z86.718 Personal history of other venous thrombosis and embolism; Z87.820 Personal history of traumatic brain injury; N18.9 Chronic kidney disease, unspecified; E11.65 Type 2 diabetes mellitus with hyperglycemia; I12.9 Hypertensive chronic kidney disease with stage 1 through stage 4 chronic kidney disease, or unspecified chronic kidney disease; Z86.711 Personal history of pulmonary embolism; M06.9 Rheumatoid arthritis, unspecified; I25.10 Atherosclerotic heart disease of native coronary artery without angina pectoris; Z98.2 Presence of cerebrospinal fluid drainage device; F32.9 Major depressive disorder, single episode, unspecified; F41.9 Anxiety disorder, unspecified; D50.9 Iron deficiency anemia, unspecified; E88.09 Other disorders of plasma-protein metabolism, not elsewhere classified; L89.611 Pressure ulcer of right heel, stage 1; L89.890 Pressure ulcer of other site, unstageable; I73.9 Peripheral vascular disease, unspecified; I89.0 Lymphedema, not elsewhere classified; D69.6 Thrombocytopenia, unspecified; B96.4 Proteus (mirabilis) (morganii) as the cause of diseases classified elsewhere
CPT/HCPCS: 31720; 36415; 36569; 36600; 71010-TC; 80048-TC; 80053-TC; 80061-TC; 80076-TC; 80162-TC; 80202-TC; 81000-TC; 82306; 82728-TC; 82746; 82784; 82803-TC; 82962-TC; 83540-TC; 83605-TC; 83735-TC; 84100-TC; 84155; 84165; 84439-TC; 84443-TC; 84484-TC; 85025-TC; 85378-TC; 85730-TC; 86334; 87040-TC; 87070-TC; 87081-TC; 87086-TC; 87186-TC; 93307-TC; 93970-TC; 94002-TC; 94003-TC; 94640-TC; 94799-TC; 99082-TC; A4216; A4606; A6248; C1751; C9113; J0330; J0690; J1650; J1815; J1953; J2250; J2270; J2543; J2916; J3370; J3475; J3480; J3490; J7030; J7040; J7050; J7060; J7070; P9047; Z7610